=== PATIENT | female | born 1955 | race Caucasian/White ===

== ENCOUNTER 2017-07-22 21:16 | Emergency (ER) | payer OTHER ==
[~2017-07-22] VITALS: Ht 165.1 cm; Wt 70.0 kg
[2017-07-22 22:50] LABS: UA SPECIFIC GRAVITY <=1.005 (1.005-1.035); microscopic required? YES; urine erythrocyte TRACE (NEGATIVE)
[2017-07-22 23:02] LABS: CALCIUM 7.8 mg/dL (8.5-10.1); CARBON DIOXIDE 28.3 mmol/L (21-32); CHLORIDE SERUM 102 mmol/L (98-107); CREATININE SERUM 0.6 mg/dL (0.6-1.0); GFR1 > 60 mL/min; GLUCOSE SERUM 96 mg/dL (74-106); POTASSIUM SERUM 4.1 mmol/L (3.5-5.1); SODIUM SERUM 134 mmol/L (136-145)
[2017-07-22 23:05] LABS: BASOPHIL % 0.2 % (0-2)
[2017-07-22 23:06] LABS: ALKALINE PHOSPHATASE 74 U/L (46-116); ALT/SGPT 39 U/L (14-59); AST/SGOT 47 U/L (15-37); TOTAL PROTEIN, SERUM 7.4 g/dL (6.4-8.2)
[2017-07-22 23:11] LABS: ALBUMIN 3.3 g/dL (3.4-5.0)
[2017-07-22 23:17] LABS: PLATELET COUNT 101 x10^3mcL (130-400)
[2017-07-23 00:33] VITALS: BP 98/65
== END 2017-07-23 00:33 | disposition home or self-care (01) ==
LOC: ED 21:16
PROVIDERS: Emergency Medicine
DX: B34.9 Viral infection, unspecified (principal); R04.0 Epistaxis; Z90.710 Acquired absence of both cervix and uterus
CPT/HCPCS: J1885; J3010; J7030

== ENCOUNTER 2017-07-25 11:31 | Emergency (ER) | payer OTHER ==
[~2017-07-25] VITALS: Ht 162.6 cm; Wt 69.8 kg
[2017-07-25 12:24] VITALS: BP 115/69
== END 2017-07-25 12:25 | disposition home or self-care (01) ==
LOC: ED 11:31
DX: B34.9 Viral infection, unspecified (principal); L04.0 Acute lymphadenitis of face, head and neck
CPT/HCPCS: Q0162